=== PATIENT | female | born 1965 | race Caucasian/White ===

== ENCOUNTER → 2025-01-26 | Day surgery (SDC) | payer MEDICARE, OTHER ==
[~2025-01-26] MED LIST: ASPIRIN81 MG PO; BACLOFEN10 MG PO; CRESTOR40 MG PO; DEXTROSE 5% 250ML 250 ML IV ONE; DOXYCYCLINE HY100 MG PO; EFFEXOR XR150 MG PO; FENTANYL CITRATE/PF 100MCG/2 ML INJ ONE; FERROUS GLUCON240 MG PO; GLUCAGON FOR INJ 1 MG VIAL ONE; LIDOCAINE HCL 2% LOCAL INJ 5 ML SDV VIAL INJ ONE; LISINOPRIL5 MG PO; MAGNESIUM PO; METFORMIN HCL500 MG PO; METOPROLOL SUCC50 MG PO; MOUNJARO15 MG/0.5 SC; MULTI-VITAMIN1 EACH PO; OMEPRAZOLE40 MG PO; PROPOFOL IV EMULSION 50 ML IV ONE; TECFIDERA240 MG PO; TRAZODONE HCL50 MG PO; TURMERIC500 M2 PO; VITAMIN D3125 MCG PO; VITAMIN E400 UNI1 PO; XANAX0.5 MG PO; XARELTO10 MG PO
[2025-01-26 12:33] LABS: BASOPHILS % 0.6 % (0.0-1.0); EOSINOPHILS % 1.3 % (0.0-6.0); LYMPHOCYTES % 19.0 % (18.0-39.1); MONOCYTES % 7.0 % (4.4-11.3); NEUTROPHILS % 71.9 % (38.7-80.0); RED CELL DISTRIBUTION WIDTH 13.2 % (11.7-14.4)
[2025-01-26 12:50] LABS: INR 0.9
[2025-01-26] MEDS: SODIUM CHLORIDE 0.9% 500ML 500 ML ONE (12:55)
[2025-01-26 12:58] LABS: EST GLOMERULAR FILTRATION RATE 54.0 ML/MIN (>=60)
[2025-01-26 14:14] VITALS: TEMP 98.3
[2025-01-26 14:35] VITALS: BP 101/69; PULSE 80; RESP 18; O2SAT 99
== END | disposition home or self-care (01) ==
LOC: OR 11:45
PROVIDERS: ATTEND Internal Medicine Gastroenterology
DX: Z12.11 Encounter for screening for malignant neoplasm of colon (principal); K29.70 Gastritis, unspecified, without bleeding; K31.89 Other diseases of stomach and duodenum; K21.9 Gastro-esophageal reflux disease without esophagitis; K59.00 Constipation, unspecified; Z98.84 Bariatric surgery status; G47.33 Obstructive sleep apnea (adult) (pediatric); D50.9 Iron deficiency anemia, unspecified; G35 Multiple sclerosis; E11.22 Type 2 diabetes mellitus with diabetic chronic kidney disease; I12.9 Hypertensive chronic kidney disease with stage 1 through stage 4 chronic kidney disease, or unspecified chronic kidney disease; N18.30 Chronic kidney disease, stage 3 unspecified; I25.10 Atherosclerotic heart disease of native coronary artery without angina pectoris; I25.2 Old myocardial infarction; E78.5 Hyperlipidemia, unspecified; F41.9 Anxiety disorder, unspecified; F32.A Depression, unspecified; Z79.02 Long term (current) use of antithrombotics/antiplatelets; Z79.82 Long term (current) use of aspirin; Z79.84 Long term (current) use of oral hypoglycemic drugs; Z79.85 Long-term (current) use of injectable non-insulin antidiabetic drugs; Z79.899 Other long term (current) drug therapy; Z87.898 Personal history of other specified conditions; Z85.820 Personal history of malignant melanoma of skin; Z95.5 Presence of coronary angioplasty implant and graft
CPT/HCPCS: 43239; G0104; 36415; 45378; 80048; 82948; 85025; 85610; 85730; J1610; J2003; J7040